=== PATIENT | male | born 2005 | race Caucasian/White ===

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

== ENCOUNTER 2025-02-03 13:55 | Emergency (ER) | payer MEDICAID ==
[~2025-02-03] VITALS: Ht 190.5 cm; Wt 91.5 kg
--- NOTE | 2025-02-03 14:14 | Physician Documentation ---
History of Present Illness ~ General Chief Complaint: See Chief Complaint Stated Complaint: ANXIETY Time Seen by MD: 14:14 Source: patient Mode of Arrival: POV Exam Limitations: no limitations History of Present Illness Initial Comments 19-year-old male having some depression and anxiety feeling overwhelmed with his family and feeling like he is losing his friends and family. Patient currently lives with his mom but feels like he is losing his dad. Patient denies adamantly that he is not suicidal or homicidal. Patient states that is not inside me. Patient has used therapy in the past for sensations and feelings like this approximately 6 years ago. Patient does not like medications but is willing to try something for anxiety and the feelings of being overwhelmed. No other acute concerns Medication Reconciliation Allergies: Coded Allergies: No Known Allergies (Unverified , 02/03/25) Past Medical History Past Medical History: Anxiety, Depression Past Surgical History: noncontributory Drug Use: marijuana Lives In: Home Occupation: unemployed Review of Systems All Other Systems at this time: Reviewed and Negative Psychiatric: Reports: see HPI Physical Exam Physical Exam Vital Signs: RN Vital Signs have been reviewed: Yes, Temperature: 97.1, Source: Temporal, Heart Rate: 78, Respiratory Rate: 16, BP: 119/70, Pulse Oximetry: 98, Weight: 91.500 Oxygen Flow Rate: 0 Physical Exam General: Alert, no apparent distress. HEENT: moist mucous membranes. Neck: Full range of motion. Respiratory: No respiratory distress speaking in full sentences Chest: No accessory muscle use. Cardiovascular: Appears well perfused Neurologic: Oriented x4. Psychiatric: Tearful slightly anxious but answering questions appropriately Skin: Normal color, warm and dry. No edema, no ecchymosis. Progress Results/Orders Results/Orders Vital Signs 02/03/25 14:00 Temp 97.1 Pulse 78 Resp 16 B/P (MAP) 119/70 Pulse Ox 98 O2 Flow Rate 0 Medical Decision Making Additional information obtaine: N/A Findings Patient denies any suicidal homicidal ideations. Patient is tearful and anxious. Discussed therapy and consultation patient will go to [facility]. Discussed other clinics that can be utilized as walking to help with sensations of feeling overwhelmed depression anxiety. Differential Diagnosis Anxiety, depression, panic attacks Departure Time of Disposition: 14:18 Disposition: 01 HOME / SELF CARE / HOMELESS Impression: Primary Impression: Panic attack Additional Impression: Depression Condition: Stable Discharge Instructions: Managing Depression, Adult Additional Instructions: Follow up with [facility], take hydroxyzine as needed for feelings of overwhelmed and depression anxiety. Feel free to return to the ER for any new or worsening symptoms [facility] Address: [id number], [place] [address] Hours: Closes 4:30?PM Referrals: NO PRIMARY CARE PROVIDER (PCP) Prescriptions Hydroxyzine HCl (Hydroxyzine HCl) 50 Mg Tablet 1 TAB PO Q8H for anxiety for 30 Days, #90 TAB 0 Refills Prov: CYNDY GRANT NP 02/03/25 Education Educated: Patient Educated regarding: diagnosis, treatment, need for follow up Signature Scribe Signature: No scribe Attestation: The note accurately reflects work and decisions made by me.Cyndy RANDALL 02/03/25 14:23 CYNDY GRANT NP Feb 03, 2025 14:14
[2025-02-03] MEDS ORDERED: HYDR50TA65 PO (14:22)
[2025-02-03 15:00] VITALS: BP 124/78; PULSE 78; RESP 16; TEMP 98.4; O2SAT 98
== END 2025-02-03 15:03 | disposition home or self-care (01) ==
LOC: ER 13:55
DX: F41.0 Panic disorder [episodic paroxysmal anxiety] (principal); F32.A Depression, unspecified
CPT/HCPCS: 99283; Q0177

== ENCOUNTER 2025-02-04 16:41 | Emergency (ER) | payer MEDICAID ==
[~2025-02-04] VITALS: Ht 177.8 cm; Wt 93.2 kg
[~2025-02-04 16:41] MED LIST: HYDR50TA65 PO
--- NOTE | 2025-02-04 16:45 | Physician Documentation ---
History of Present Illness ~ Stated Complaint: ANXIETY/MH EVAL Time Seen by MD: 16:44 HPI 39-year-old male who was seen in this emergency department just yesterday for symptoms of anxiety. He reports that he has been anxiety in the past, but not as bad as he has last few days. He lives with his mom, but does not feel that he can discuss these issues with her. Yesterday, he was sent home with Atarax. However, he returned today via ambulance reporting that he did not feel comfortable taking this. Medication Reconciliation Allergies: Coded Allergies: No Known Allergies (Unverified , 02/03/25) Scheduled Hydroxyzine HCl (Hydroxyzine HCl), 1 TAB PO Q8H Past Medical History Past Medical History: Anxiety, Depression Past Surgical History: noncontributory Drug Use: marijuana Lives In: Home Occupation: unemployed Review of Systems ROS As stated above in the HPI, otherwise all systems are reviewed and negative. Physical Exam Physical Exam General: Alert, cries on exam. HEENT: PERRL, EOMI, no injection, moist mucous membranes. Neck: Full range of motion. Respiratory: Lungs clear, no respiratory distress. Chest: No accessory muscle use. Cardiovascular: Regular rate and rhythm, no murmurs. Gastrointestinal: Soft, nontender, nondistended. Bowels sounds present. Extremities: Normal range of motion, no deformity. Neurologic: Oriented x4. Psychiatric: Fair eye contact. Anxious appearing. Skin: Normal color, warm and dry. No edema, no ecchymosis. Progress Results/Orders Results/Orders Completed Orders - TRACI CEVALLOS NP Lorazepam Tablet (Ativan Tablet) (02/04/25 16:45) Medications Received in ER Medications (Trade) Dose Ordered Sig/Leena Route PRN Reason Start Time Stop Time Status Last Admin Dose Admin (Ativan tablet) 1 mg ONCE ONCE PO 02/04/25 16:45 02/04/25 16:46 DC 02/04/25 17:16 1 MG Vital Signs 02/04/25 02/04/25 16:48 17:16 Temp 98.1 Pulse 83 Resp 16 16 B/P (MAP) 130/83 Pulse Ox 98 O2 Flow Rate 0 Medical Decision Making Additional information obtaine: old records Findings here 02/03/25 for anxiety,sent with atarax. Differential Dx:Considerations: Include: Alcohol abuse, Anxiety, Bipolar disorder, Conversion disorder, Depression, Encephaloathy, Homicidal, Panic disorder, Personality disorder, Schizophrenia, Substance abuse, Suicidal Differential Diagnosis symptoms consistent with panic attack/anxiety. Departure Time of Disposition: 17:48 Disposition: 01 HOME / SELF CARE / HOMELESS Impression: Primary Impression: Anxiety Condition: Stable Discharge Instructions: Panic Attack Additional Instructions: Established with a psychiatrist and therapist as discussed yesterday. [facility] and [facility] both have walk-in hours available. Do use the hydroxyzine as needed for anxiety. Return if worse. Referrals: NO PRIMARY CARE PROVIDER (PCP) Education Educated: Patient Educated regarding: diagnosis, treatment, prognosis, need for follow up Signature Scribe Signature: x Attestation: The note accurately reflects work and decisions made by me.Traci Reed NP 02/04/25 17:48 TRACI CEVALLOS NP Feb 04, 2025 16:45
[2025-02-04 16:48] VITALS: BP 130/83; PULSE 83; TEMP 98.1; O2SAT 98
[2025-02-04 17:16] VITALS: RESP 16
== END 2025-02-04 17:59 | disposition home or self-care (01) ==
LOC: ER 16:42
DX: F41.9 Anxiety disorder, unspecified (principal); F32.A Depression, unspecified; F12.90 Cannabis use, unspecified, uncomplicated
CPT/HCPCS: 99283